=== PATIENT | female | born 1985 | race Caucasian/White ===

== ENCOUNTER 2017-12-20 14:30 | Emergency (ER) | payer SELFPAY ==
[~2017-12-20] VITALS: Ht 162.6 cm; Wt 58.0 kg
[2017-12-20 14:39] VITALS: BP 125/79; PULSE 108; RESP 18; TEMP 99.2; O2SAT 99
[2017-12-20] MEDS ORDERED: ONDANSETRON HCL 4 MG/2 ML VIAL IV PUSH ONE (14:45)
[2017-12-20] MEDS ORDERED: HYDROmorphone HCL PF 2 MG/ML VIAL IV PUSH ONE ×2 (14:45→15:00)
[2017-12-20] MEDS ORDERED: SODIUM CHLOR 0.9% 1000 ML INJ 1,000 ML IV SCH (14:45)
[2017-12-20] MEDS ORDERED: PROPOFOL 200 MG/20 ML AMP IV ONE (15:00)
[2017-12-20] MEDS ORDERED: HYDROmorphone HCL PF 1 MG/ML VIAL IV PUSH ONE (15:00)
--- NOTE | 2017-12-20 15:05 | RADRPT ---
EXAM DATE: 12/20/2017 2:59 PM EDT AGE/SEX: 32 years / Female INDICATIONS: Left shoulder pain post fall. CLINICAL DATA: This is the patient's initial encounter. Patient reports that signs and symptoms have been present for 1 day and indicates a pain score of 10/10. MEDICAL/SURGICAL HISTORY: None. None. COMPARISON: No prior [facility] exams available for comparison. FINDINGS: Anterior dislocation of the left shoulder. No associated fracture. Adjacent lung is clear. CONCLUSION: Anteroinferior dislocation of the left shoulder. Electronically signed by: Peter Garcia MD 12/20/2017 3:03 PM EDT
[2017-12-20 15:30] VITALS: O2SAT 100
[2017-12-20 16:02] VITALS: BP 125/76; PULSE 77; RESP 18; O2SAT 100
--- NOTE | 2017-12-20 16:08 | RADRPT ---
EXAM DATE: 12/20/2017 3:59 PM EDT AGE/SEX: 32 years / Female INDICATIONS: Post reduction of left shoulder. CLINICAL DATA: This is the patient's subsequent encounter. Patient reports that signs and symptoms h ave been present for 1 day and indicates a pain score of 2/10. MEDICAL/SURGICAL HISTORY: None. None. COMPARISON: [facility], SHOULDER LEFT LTD (2VWS), 12/20/2017. . FINDINGS: Interval reduction of the anterior shoulder dislocation. There is no near-anatomic alignment of the g lenohumeral joint. Osseous structures appear intact. No evidence for bony Bankart or Hill-Sachs defor mities. AC joint is intact Remainder of the exam is unchanged. CONCLUSION: 1. Near-anatomic alignment following reduction of left shoulder dislocation without acute fracture. Electronically signed by: Juan C Rush MD 12/20/2017 4:02 PM EDT
[2017-12-20] MEDS ORDERED: HYDR-3288 PO (16:09)
--- NOTE | 2017-12-20 16:09 | PD ---
HPI Chief Complaint: Musculoskeletal Complaint Time Seen by Provider: 14:40 Travel History International Travel<30 days: No Contact w/Intl Traveler<30days: No Traveled to known affect area: No History of Present Illness HPI This 32-year-old female is complaining of severe pain in her left shoulder. The pain started while she was doing a obstacle course. She is not quite sure what direction the shoulder 1 and she is having a lot of pain in the shoulder and is unable to move the arm. She has some paresthesias in her fingers. She has no history of dislocation of the shoulder. There is no other injury. [facility] Past Medical History Medical History: Denies Significant Hx ?: Not LMP: NOW Past Surgical History Surgical History: No Previous Surgery Section: Yes Social History Alcohol Use: Yes (OCCAS) Tobacco Use: No Substance Use: No Allergies-Medications (Allergen,Severity, Reaction): Coded Allergies: No Known Allergies (Unverified , 12/20/17) Reported Meds & Prescriptions Reported Meds & Active Scripts Active No Active Prescriptions or Reported Medications Review of Systems Except as stated in HPI: all other systems reviewed are Neg Physical Exam Narrative GENERAL: Well-developed female SKIN: Focused skin assessment warm/dry. HEAD: Atraumatic. Normocephalic. EYES: Pupils equal and round. No scleral icterus. No injection or drainage. ENT: No nasal bleeding or discharge. Mucous membranes pink and moist. NECK: Trachea midline. No JVD. MUSCULOSKELETAL: Left shoulder squared off in the position consistent with dislocation. The humeral head is palpable inferior to the clavicle. Distal pulses and sensation appear intact NEUROLOGICAL: Awake and alert. No obvious cranial nerve deficits. Motor grossly within normal limits. Normal speech. PSYCHIATRIC: Appropriate mood and affect; insight and judgment normal. Data Data Last Documented VS Vital Signs Date Time Temp Pulse Resp B/P (MAP) Pulse Ox O2 Delivery O2 Flow Rate FiO2 12/20/17 16:02 77 18 125/76 (92) 100 Room Air 2.00 12/20/17 14:39 99.2 Orders Orders Shoulder, Limited(2vws) (12/20/17 14:40) Sodium Chlor 0.9% 1000 Ml Inj (Ns 1000 M (12/20/17 14:45) Ondansetron Inj (Zofran Inj) (12/20/17 14:45) Hydromorphone Pf Inj (Dilaudid Pf Inj) (12/20/17 14:45) Propofol 200 Mg/20 Ml Inj (Diprivan 200 (12/20/17 15:00) Hydromorphone Pf Inj (Dilaudid Pf Inj) (12/20/17 15:00) Shoulder, Limited(2vws) (12/20/17 15:37) MDM Medical Decision Making Medical Screen Exam Complete: Yes Emergency Medical Condition: Yes Medical Record Reviewed: Yes Differential Diagnosis Differential includes fracture, dislocation Narrative Course X-ray shows an inferior dislocation of the shoulder. X-ray shows reduction of the dislocation. I do not see a fracture. Procedures Procedure Narrative Consent for conscious sedation was obtained. Under cardiopulmonary monitoring the patient was given 100 mg of intravenous propofol. The shoulder was reduced with longitudinal traction. Patient tolerated the procedure well. Diagnosis Primary Impression: Inferior dislocation of shoulder Scripts Hydrocodone-Acetaminophen ([place]) 7.5-325 mg Tab 1 TAB PO Q4H Y for PAIN, #12 TAB 0 Refills Prov: Tarun Clark MD 12/20/17 Disposition: 01 DISCHARGE HOME Condition: Stable Tarun Clark MD December 20, 2017 16:09
== END 2017-12-20 16:37 | disposition home or self-care (01) ==
LOC: PHED 14:30
DX: M24.412 Recurrent dislocation, left shoulder (principal); Y93.A5 Activity, obstacle course
CPT/HCPCS: 23650; 73030; 94770; 96361; 96374; 96375; 99284; J1170; J2405; J7030